=== PATIENT | female | born 1935 | race Caucasian/White ===

== ENCOUNTER 2021-06-09 06:50 | Day surgery (SDC) | payer OTHER ==
[2021-06-07 12:38] VITALS: BMI 28.5
[2021-06-09] MEDS ORDERED: PROPOFOL 20 ML ONE ×2 (07:57)
[2021-06-09] MEDS ORDERED: LIDOCAINE HCL/PF 2% SDV 5ML VIAL ONE (08:13)
[2021-06-09 12:37] VITALS: TEMP 97.6
[2021-06-09 12:39] VITALS: BP 136/79; PULSE 88
== END 2021-06-09 09:55 | disposition home or self-care (01) ==
LOC: FASU-ENDO 06:50
PROVIDERS: ATTEND Internal Medicine Gastroenterology
PROC: 0DJD8ZZ Inspection of Lower Intestinal Tract, Via Natural or Artificial Opening Endoscopic (ICD-10-PCS; principal; 2021-06-09 08:00)
DX: K92.1 Melena (principal); K64.1 Second degree hemorrhoids; K56.609 Unspecified intestinal obstruction, unspecified as to partial versus complete obstruction
CPT/HCPCS: 82962

== ENCOUNTER 2023-10-20 11:21 | Emergency (ER) | payer OTHER ==
[2023-10-20 11:33] VITALS: BMI 22.9
[2023-10-20 12:14] VITALS: PULSE 58; RESP 18
[2023-10-20 13:20] LABS: BASO % 0.3 % (0-2.0); EOS % 1.9 % (0-4.5); HEMATOCRIT 38.3 % (32.4-45.2); HEMOGLOBIN 12.7 GM/dL (10.7-15.3); LYMPH % 27.8 % (8-40); MCH 30.1 pg (25.7-33.7); MCHC 33.1 g/dl (32.0-36.0); MEAN CELL VOLUME 91.1 fl (80-96); MEAN PLT VOLUME 8.3 fl (7.5-11.1); MONO % 6.3 % (3.8-10.2); NEUT % 63.7 % (42.8-82.8); PLATELET COUNT 170 10^3/uL (134-434); RBC 4.21 M/mm3 (3.60-5.2); RDW 14.6 % (11.6-15.6)
[2023-10-20 13:33] LABS: INR 1.05 (0.83-1.09); PROTHROMBIN TIME (PATIENT) 11.9 SEC (9.7-13.0)
[2023-10-20 13:41] LABS: POTASSIUM 4.1 mmol/L (3.5-5.1)
[2023-10-20 13:43] LABS: ALBUMIN 3.3 g/dl (3.4-5.0); CALCIUM 9.5 mg/dL (8.5-10.1)
[2023-10-20 13:44] LABS: BLOOD UREA NITROGEN 23.8 mg/dL (7-18)
[2023-10-20 13:48] LABS: BILIRUBIN,TOTAL 0.4 mg/dL (0.2-1)
[2023-10-20 14:00] VITALS: BP 110/81; TEMP 97.7
== END 2023-10-20 14:26 | disposition home or self-care (01) ==
LOC: JER 11:21
DX: K64.4 Residual hemorrhoidal skin tags (principal); K62.89 Other specified diseases of anus and rectum
CPT/HCPCS: 36415; 80053; 82272; 85025; 85610; 85730; 86850; 86870; 86880; 86900; 86901; 86902; 93005; 93010; 99284-25